=== PATIENT | female | born 1975 | race Caucasian/White ===

== ENCOUNTER 2022-05-09 13:49 | Inpatient (IN) | payer OTHER ==
[~2022-05-09] VITALS: Ht 172.7 cm; Wt 66.3 kg
[2022-05-09 14:29] LABS: HEMOGLOBIN 12.6 gm/dl (12.3-15.3); RED BLOOD COUNT 3.93 M/UL (4.00-5.10); WHITE BLOOD COUNT 17.5 K/UL (4.5-11.0)
[2022-05-09 14:53] LABS: BUN/CREATININE RATIO 22 (0-10)
[2022-05-09] MEDS ORDERED: ONDANSETRON HCL8 MG PO (22:35)
[2022-05-09] MEDS ORDERED: LINZESS145 MCG PO (22:35)
[2022-05-09] MEDS ORDERED: SERTRALINE HCL100 MG PO (22:36)
[2022-05-09] MEDS ORDERED: LOPRESSOR 25 MG25 MG PO (22:37)
[2022-05-09] MEDS ORDERED: ALLEGRA ALLERG180 MG PO (22:37)
[2022-05-09] MEDS ORDERED: KEPPRA500 MG PO (22:37)
[2022-05-09] MEDS ORDERED: TRAZODONE HCL100 MG PO (22:38)
[2022-05-09] MEDS ORDERED: LISINOPRIL-HCT1 EAC2 PO (22:38)
[2022-05-09] MEDS ORDERED: KLONOPIN0.5 MG PO (22:39)
[2022-05-09] MEDS ORDERED: COZAAR50 MG PO (22:39)
[2022-05-09] MEDS ORDERED: CATAPRES 0.1MG0.1 MG PO (22:39)
[2022-05-09] MEDS ORDERED: BANOPHEN25 MG PO (22:40)
[2022-05-09] MEDS ORDERED: CYPROHEPTADINE H4 MG PO (22:41)
[2022-05-10 09:04] LABS: HEMOGLOBIN 10.4 gm/dl (12.3-15.3); RED BLOOD COUNT 3.33 M/UL (4.00-5.10)
[2022-05-10 09:18] LABS: BUN/CREATININE RATIO 24 (0-10)
[2022-05-10] MEDS ORDERED: IBU800 MG PO (10:28)
[2022-05-10] MEDS ORDERED: LANTUS SOL100 UNIT/1 SQ (10:29)
[2022-05-10] MEDS ORDERED: HUMULIN 70100 UNIT/1 SQ (10:30)
[2022-05-10] MEDS ORDERED: PROAIR HFA8.5 GM INH (10:31)
[2022-05-10] MEDS ORDERED: VITAMIN D21250 MCG PO (10:31)
[2022-05-10] MEDS ORDERED: SYMBICORT 80-10.2 GM INH (10:32)
[2022-05-10] MEDS ORDERED: CYANOCOBAL1000 MCG/1 INJ (10:34)
[2022-05-10] MEDS ORDERED: GABAPENTIN800 MG PO (22:36)
[2022-05-10] MEDS ORDERED: ZONISAMIDE100 MG PO (22:41)
[2022-05-11 04:08] LABS: HEMOGLOBIN 9.9 gm/dl (12.3-15.3); RED BLOOD COUNT 3.16 M/UL (4.00-5.10)
[2022-05-11 04:32] LABS: BUN/CREATININE RATIO 39 (0-10)
[2022-05-12 01:55] LABS: HEMOGLOBIN 9.9 gm/dl (12.3-15.3); RED BLOOD COUNT 3.21 M/UL (4.00-5.10); WHITE BLOOD COUNT 19.8 K/UL (4.5-11.0)
[2022-05-12 02:18] LABS: BUN/CREATININE RATIO 27 (0-10)
[2022-05-13 05:00] LABS: BUN/CREATININE RATIO 17 (0-10)
[2022-05-13 05:57] LABS: RED BLOOD COUNT 3.23 M/UL (4.00-5.10); WHITE BLOOD COUNT 16.8 K/UL (4.5-11.0)
[2022-05-14 02:53] LABS: HEMOGLOBIN 9.6 gm/dl (12.3-15.3); RED BLOOD COUNT 3.09 M/UL (4.00-5.10); WHITE BLOOD COUNT 13.8 K/UL (4.5-11.0)
[2022-05-14 03:16] LABS: BUN/CREATININE RATIO 16 (0-10)
[2022-05-14] MEDS ORDERED: BACTRIM DS TAB1 EACH PO (09:15)
--- NOTE | 2022-05-14 10:04 | NUR ---
Patient requesting pain medication. Educated patient that her blood pressure was too low to get morphine or hydrocodone. Offered Tylenol and patient refused stating "it won't help".
--- NOTE | 2022-05-14 11:47 | NUR ---
Patient requesting pain medication to go home with. Called Dr. Alva and was told she can take Ibuprofen or Tylenol over the counter as it is on her home medication list.
[2022-05-16 05:08] LABS: BUN/CREATININE RATIO 23 (0-10)
[2022-05-16] MEDS ORDERED: HYDROCODON-ACE1 EAC2 PO (09:39)
== END 2022-05-16 12:49 | disposition home health service (06) | DRG 603 ==
LOC: ER1 13:49 → M/S 18:09 → CDU 18:09 → M/S 21:56
PROVIDERS: Emergency Medicine; Internal Medicine; Physician Assistant; Surgery; ADMIT Internal Medicine
PROC: 0HBJXZZ Excision of Left Upper Leg Skin, External Approach (ICD-10-PCS; principal; 2022-05-11 10:30)
DX: L02.31 Cutaneous abscess of buttock (principal); E87.1 Hypo-osmolality and hyponatremia; E11.52 Type 2 diabetes mellitus with diabetic peripheral angiopathy with gangrene; I96 Gangrene, not elsewhere classified; E11.65 Type 2 diabetes mellitus with hyperglycemia; E78.5 Hyperlipidemia, unspecified; G40.909 Epilepsy, unspecified, not intractable, without status epilepticus; G43.909 Migraine, unspecified, not intractable, without status migrainosus; K21.9 Gastro-esophageal reflux disease without esophagitis; F17.200 Nicotine dependence, unspecified, uncomplicated; J44.9 Chronic obstructive pulmonary disease, unspecified; E03.9 Hypothyroidism, unspecified; F41.8 Other specified anxiety disorders; F32.A Depression, unspecified; F17.210 Nicotine dependence, cigarettes, uncomplicated; I12.9 Hypertensive chronic kidney disease with stage 1 through stage 4 chronic kidney disease, or unspecified chronic kidney disease; N18.30 Chronic kidney disease, stage 3 unspecified; R00.0 Tachycardia, unspecified; L03.317 Cellulitis of buttock; M51.36 Other intervertebral disc degeneration, lumbar region; M54.50 Low back pain, unspecified; D64.9 Anemia, unspecified; B95.62 Methicillin resistant Staphylococcus aureus infection as the cause of diseases classified elsewhere; G89.29 Other chronic pain; Z79.899 Other long term (current) drug therapy; Z99.81 Dependence on supplemental oxygen; Z82.49 Family history of ischemic heart disease and other diseases of the circulatory system; Z79.4 Long term (current) use of insulin; Z71.6 Tobacco abuse counseling; Z87.442 Personal history of urinary calculi; Z98.890 Other specified postprocedural states; Z90.49 Acquired absence of other specified parts of digestive tract; Z79.82 Long term (current) use of aspirin
CPT/HCPCS: 36415; 36600; 71045; 72158; 80048; 80053; 80202; 81001; 82550; 82553; 82803; 82962; 83036; 83605; 83735; 84100; 84132; 84439; 84443; 84484; 84703; 85025; 85610; 87040; 87070; 87077; 87086; 87186; 87205; 93005; 94640; 94664; 94760; 96365; 96366; 96367; 96375; 97116; 97161; 99285; A9577; J1650; J2001; J2250; J2270; J2405; J2543; J3010; J3370; J7030; J7070

== ENCOUNTER 2022-07-03 14:49 | Emergency (ER) | payer OTHER ==
[~2022-07-03 14:49] MED LIST: ALLEGRA ALLERG180 MG PO; BACTRIM DS TAB1 EACH PO; BANOPHEN25 MG PO; CATAPRES 0.1MG0.1 MG PO; COZAAR50 MG PO; CYANOCOBAL1000 MCG/1 INJ; CYPROHEPTADINE H4 MG PO; GABAPENTIN800 MG PO; HUMULIN 70100 UNIT/1 SQ; HYDROCODON-ACE1 EAC2 PO; IBU800 MG PO; KEPPRA500 MG PO; KLONOPIN0.5 MG PO; LANTUS SOL100 UNIT/1 SQ; LINZESS145 MCG PO; LISINOPRIL-HCT1 EAC2 PO; LOPRESSOR 25 MG25 MG PO; ONDANSETRON HCL8 MG PO; PROAIR HFA8.5 GM INH; SERTRALINE HCL100 MG PO; SYMBICORT 80-10.2 GM INH; TRAZODONE HCL100 MG PO; VITAMIN D21250 MCG PO; ZONISAMIDE100 MG PO
[2022-07-03 16:05] LABS: HEMOGLOBIN 13.4 gm/dl (12.3-15.3); RED BLOOD COUNT 4.25 M/UL (4.00-5.10); WHITE BLOOD COUNT 12.2 K/UL (4.5-11.0)
[2022-07-03 16:28] LABS: BUN/CREATININE RATIO 27 (0-10)
[2022-07-03] MEDS ORDERED: OMNICEF 300 MG300 MG PO (21:22)
== END 2022-07-03 21:30 | disposition home or self-care (01) ==
LOC: ER1 14:49
PROVIDERS: Physician Assistant
DX: N30.01 Acute cystitis with hematuria (principal); E11.9 Type 2 diabetes mellitus without complications; F17.290 Nicotine dependence, other tobacco product, uncomplicated
CPT/HCPCS: 80053; 80307; 81001; 83690; 84703; 85025; 99284; Q9967

== ENCOUNTER 2022-07-05 15:19 | Emergency (ER) | payer OTHER ==
[~2022-07-05 15:19] MED LIST changes: +OMNICEF 300 MG300 MG PO
[2022-07-05 15:40] LABS: HEMOGLOBIN 13.3 gm/dl (12.3-15.3); RED BLOOD COUNT 4.26 M/UL (4.00-5.10)
[2022-07-05 15:43] LABS: WHITE BLOOD COUNT 8.7 K/UL (4.5-11.0)
[2022-07-05 16:13] LABS: BUN/CREATININE RATIO 31 (0-10)
[2022-07-05] MEDS ORDERED: ZOFRAN ODT 4 MG4 MG SL (17:59)
[2022-07-05] MEDS ORDERED: NOVOLOG MI100 UNITS/ INJ (18:08)
[2022-07-05] MEDS ORDERED: HUMULIN R100 UNITS/ SC (18:08)
== END 2022-07-05 18:40 | disposition home or self-care (01) ==
LOC: ER1 15:19
PROVIDERS: Family Medicine
DX: E11.65 Type 2 diabetes mellitus with hyperglycemia (principal); I10 Essential (primary) hypertension
CPT/HCPCS: 80053; 81001; 82009; 82550; 82553; 82962; 83690; 84484; 85025; 93005; 96374; 96375; 96376; 99284; J1885; J2405

== ENCOUNTER → 2022-07-19 | Day surgery (SDC) | payer OTHER ==
[~2022-07-19] VITALS: Ht 170.2 cm; Wt 68.9 kg
[~2022-07-19] MED LIST changes: +BUTALB-ACETAMI1 EAC1 PO; +ENDOCET 7.5-321 EACH PO; +HUMULIN R100 UNITS/ SC; +LEVETIRACETAM500 MG PO; +LEVOTHYROXINE88 MC1 PO; +LIPITOR80 MG PO; +NOVOLOG MI100 UNITS/ INJ; +QUETIAPINE FUMA50 MG PO; +ZOFRAN ODT 4 MG4 MG SL
[2022-07-19 08:46] LABS: BUN/CREATININE RATIO 43 (0-10)
== END | disposition home or self-care (01) ==
LOC: OR 06:31
PROVIDERS: Orthopaedic Surgery
DX: S62.334A Displaced fracture of neck of fourth metacarpal bone, right hand, initial encounter for closed fracture (principal); E11.40 Type 2 diabetes mellitus with diabetic neuropathy, unspecified; J44.9 Chronic obstructive pulmonary disease, unspecified; E78.5 Hyperlipidemia, unspecified; I10 Essential (primary) hypertension; Z79.4 Long term (current) use of insulin; X50.1XXA Overexertion from prolonged static or awkward postures, initial encounter
CPT/HCPCS: 73130; 76000; 80048; 82962; J0690; J1100; J1170; J1885; J2250; J2370; J2405; J2704; J3010